=== PATIENT | male | born 1995 | race Caucasian/White ===

== ENCOUNTER 2017-01-09 00:26 | Emergency (ER) | payer MEDICAID ==
[~2017-01-09] VITALS: Ht 175.3 cm; Wt 81.6 kg
[2017-01-09 00:35] VITALS: BP_SYST 155
[2017-01-09] MEDS ORDERED: DIPH-TET-PERTUS Vaccine 0.5 ML VIAL (ADACEL) IM ONE (01:15)
[2017-01-09] MEDS ORDERED: BACITRACIN 1 GM OINT TP ONE (01:15)
[2017-01-09 01:25] VITALS: BP_SYST 150
== END 2017-01-09 01:25 | disposition home or self-care (01) ==
LOC: SED 00:26
DX: S01.01XA Laceration without foreign body of scalp, initial encounter (principal); R03.0 Elevated blood-pressure reading, without diagnosis of hypertension; V00.131A Fall from skateboard, initial encounter; Y93.51 Activity, roller skating (inline) and skateboarding; Y92.89 Other specified places as the place of occurrence of the external cause; Y99.8 Other external cause status
CPT/HCPCS: 90715; 99283

== ENCOUNTER 2017-01-15 11:56 | Emergency (ER) | payer MEDICAID ==
[~2017-01-15] VITALS: Ht 177.8 cm; Wt 81.6 kg
[2017-01-15 12:03] VITALS: BP_SYST 138
[2017-01-15 12:22] VITALS: BP_SYST 128
== END 2017-01-15 12:22 | disposition home or self-care (01) ==
LOC: SED 11:56
DX: S01.01XD Laceration without foreign body of scalp, subsequent encounter (principal); X58.XXXD Exposure to other specified factors, subsequent encounter
CPT/HCPCS: 99281

== ENCOUNTER 2017-03-07 00:56 | Emergency (ER) | payer MEDICAID ==
[~2017-03-07] VITALS: Ht 175.3 cm; Wt 72.6 kg
[2017-03-07 01:00] VITALS: BP_SYST 158
[2017-03-07 01:44] LABS: BILIRUBIN,URINE NEGATIVE (NEGATIVE); BLOOD, URINE NEGATIVE (NEGATIVE); CLARITY/URINE CLEAR (CLEAR); COLOR,URINE YELLOW (YELLOW); GLUCOSE,URINE TRACE (NEGATIVE); KETONES,URINE NEGATIVE (NEGATIVE); LEUKOCYTE ESTERASE ,URINE NEGATIVE (NEGATIVE); NITRITE, URINE NEGATIVE (NEGATIVE); PROTEIN URINE NEGATIVE (NEGATIVE); UROBILINOGEN,URINE 0.2 (0.2-1.0)
[2017-03-07 01:54] LABS: BARBITURATE, URINE NEGATIVE (NEG <=200); BENZODIAZEPINE, URINE NEGATIVE (NEG <=150); CANNABINOID, URINE POSITIVE (NEG <=50); COCAINE, URINE NEGATIVE (NEG <=150); METHAMPHETAMINES SCREEN,URINE NEGATIVE (NEG <=500); URINE AMPHETAMINE POSITIVE (NEG <=500); URINE METHADONE NEGATIVE (NEG <=200)
[2017-03-07 01:55] LABS: OPIATE, URINE NEGATIVE (NEG <=100); PHENCYCLIDINE SCREEN,URINE NEGATIVE (NEG <=25); UR TRICYCLIC ANTIDEPRESSANTS NEGATIVE (NEG <=300); URINE OXYCODONE SCREEN NEGATIVE (NEG <=100); URINE PROPOXYPHENE SCREEN NEGATIVE (NEG <=300)
[2017-03-07 02:04] LABS: BASOPHILS # (AUTO) 0.1 K/uL (0.0-0.2); EOSINOPHILS # (AUTO) 0.2 K/uL (0.0-0.4); EOSINOPHILS % (AUTO) 2.3 % (0.0-4.0); HEMATOCRIT 51.4 % (36-54); LYMPHOCYTES # (AUTO) 2.4 K/uL (1.0-5.5); LYMPHOCYTES % (AUTO) 31.2 % (20.5-51.5); MEAN CORPUSCULAR HEMOGLOBIN 30 pg (27-31); MEAN CORPUSCULAR HGB CONC 33 % (32-36); MEAN CORPUSCULAR VOLUME 89 fL (79.0-98.0); MONOCYTES # (AUTO) 0.6 K/uL (0.0-1.0); MONOCYTES % (AUTO) 7.5 % (1.7-9.3); NEUTROPHILS # (AUTO) 4.5 K/uL (1.8-7.7); PLATELET COUNT (AUTO) 318 K/uL (130-430); RED BLOOD CELL COUNT(AUTO) 5.76 MIL/uL (4.2-6.2); RED CELL DISTRIBUTION WIDTH 11.6 % (9.0-15.0); WHITE BLOOD COUNT (AUTO) 7.8 K/uL (4.5-11.0)
[2017-03-07 02:16] LABS: ALBUMIN 4.1 g/dL (3.4-4.8); CREATININE 0.82 mg/dL (0.55-1.30); POTASSIUM 3.6 mmol/L (3.5-5.1); TOTAL BILIRUBIN 0.2 mg/dL (0.0-1.0)
[2017-03-07] MEDS ORDERED: KETOROLAC TROMETHAMINE 60 MG/2 ML VIAL IM ONE (04:15)
[2017-03-07 05:10] VITALS: BP_SYST 120
== END 2017-03-07 05:10 | disposition home or self-care (01) ==
LOC: SED 00:56
DX: J18.0 Bronchopneumonia, unspecified organism (principal); F90.9 Attention-deficit hyperactivity disorder, unspecified type; Z98.890 Other specified postprocedural states
CPT/HCPCS: 36415; 74176; 80053; 80307; 81003; 83690; 85025; 93005; 96372; 99285; G0482; J1885

== ENCOUNTER 2017-05-30 01:55 | Emergency (ER) | payer MEDICAID ==
[~2017-05-30] VITALS: Ht 177.8 cm; Wt 81.6 kg
[2017-05-30 02:06] VITALS: BP_SYST 119
[2017-05-30] MEDS: HYDROcodone/ACETAMIN 10-325 MG TAB PO ONE (03:23)
[2017-05-30 05:12] VITALS: BP_SYST 111
== END 2017-05-30 05:10 | disposition home or self-care (01) ==
LOC: SED 01:55
DX: S00.81XA Abrasion of other part of head, initial encounter (principal); F90.9 Attention-deficit hyperactivity disorder, unspecified type; Y04.0XXA Assault by unarmed brawl or fight, initial encounter; Y93.89 Activity, other specified; Y92.89 Other specified places as the place of occurrence of the external cause; Y99.8 Other external cause status
CPT/HCPCS: 70450-TC; 70486-TC; 99284

== ENCOUNTER 2018-11-23 23:22 | Emergency (ER) | payer MEDICAID ==
[~2018-11-23] VITALS: Ht 177.8 cm; Wt 95.3 kg
[2018-11-23 23:43] VITALS: BP_SYST 145
--- NOTE | 2018-11-24 01:39 | NUR ---
Pt ambulatory to bed 7 for evaluation
--- NOTE | 2018-11-24 01:45 | NUR ---
Patient brought in with mother complaining of shortness of breath and productive cough x 1 week progressively worsening . Patient reports having yellow phlegm. Pain 5/10. Denies any fever, nausea, vomiting or diarrhea. No other complaints/injuries per patient or as noted. Will continue to monitor.
--- NOTE | 2018-11-24 02:22 | NUR ---
ER at bedside examining patient.
[2018-11-24] MEDS ORDERED: ONDANSETRON 4 MG ODT TAB PO ONE (02:30)
[2018-11-24] MEDS ORDERED: IPRATROPIUM/ALBUTEROL SULFATE 3 ML AMPUL.NEB (DUONEB) INH ONE (02:30)
[2018-11-24 03:01] VITALS: BP_SYST 136
--- NOTE | 2018-11-24 03:01 | NUR ---
Patient given written and verbal discharge instructions and verbalizes understanding. ER MD discussed with patient the results and treatment provided. Patient in stable condition. ID arm band removed. Rx of albuterol, zythromax and zofran given. Patient educated on pain management and to follow up with PMD in 2-3days. Pain 0/10. Opportunity for questions provided and answered. Medication side effect fact sheet provided.
== END 2018-11-24 03:01 | disposition home or self-care (01) ==
LOC: SED 23:22
DX: J20.9 Acute bronchitis, unspecified (principal)
CPT/HCPCS: 71045; 94640; 99283; J7620; Q0162

== ENCOUNTER 2020-01-21 02:20 | Emergency (ER) | payer MEDICAID ==
[~2020-01-21] VITALS: Ht 177.8 cm; Wt 99.8 kg
[2020-01-21 02:30] VITALS: BP_SYST 175
[2020-01-21] MEDS ORDERED: KETOROLAC TROMETHAMINE 60 MG/2 ML VIAL IM ONE (03:15)
[2020-01-21] MEDS ORDERED: IBUPROFEN 800 MG TABLET PO ONE (03:30)
[2020-01-21 03:34] VITALS: BP_SYST 145
== END 2020-01-21 03:34 | disposition home or self-care (01) ==
LOC: SED 02:20
DX: S63.693A Other sprain of left middle finger, initial encounter (principal); S63.695A Other sprain of left ring finger, initial encounter; W01.0XXA Fall on same level from slipping, tripping and stumbling without subsequent striking against object, initial encounter; Y93.89 Activity, other specified; Y92.89 Other specified places as the place of occurrence of the external cause; Y99.8 Other external cause status
CPT/HCPCS: 99283; J1885

== ENCOUNTER 2021-02-18 21:32 | Emergency (ER) | payer MEDICAID ==
[~2021-02-18] VITALS: Ht 182.9 cm; Wt 86.2 kg
--- NOTE | 2021-02-18 21:34 | NUR ---
Placed in room H1 . Placed on surveillance system monitor, blood pressure machine and pulse oximeter. To gown for exam. Side rails up.
[2021-02-18 21:37] VITALS: BP_SYST 131
--- NOTE | 2021-02-18 22:22 | NUR ---
Pt BIB family to ED C/O chest pain since today, pt was drinking alcohol yesterday. VSS no s/s of acute distress noted Resting on gurney rails up
--- NOTE | 2021-02-18 22:26 | NUR ---
PORTABLE XRAY AT BEDSIDE.
[2021-02-18] MEDS ORDERED: ASPIRIN 81 MG TAB.CHEW PO ONE (22:30)
[2021-02-18] MEDS ORDERED: MORPHINE 4 MG INJ. 4 MG/ML VIAL IVP ONE (22:30)
[2021-02-18] MEDS ORDERED: ONDANSETRON HCL 4 MG/2 ML VIAL IVP ONE (22:30)
--- NOTE | 2021-02-18 22:30 | NUR ---
Dr. Carr [facility] for pt eval
--- NOTE | 2021-02-18 22:34 | NUR ---
# 20 gauge angiocath placed to RIGHT AC. Use of asceptic technique. Opsite placed over site. Blood return noted. Blood for lab drawn from site. Flushed with 10 cc of normal saline. No evidence of infiltration noted. Patient tolerated well.
[2021-02-18 22:47] LABS: BASOPHILS # (AUTO) 0.1 K/uL (0.0-0.2); BASOPHILS % (AUTO) 1.3 % (0.0-2.0); EOSINOPHILS # (AUTO) 0.2 K/uL (0.0-0.4); EOSINOPHILS % (AUTO) 2.6 % (0.0-4.0); HEMATOCRIT 47.7 % (36-54); HEMOGLOBIN 16.5 g/dL (14.0-18.0); LYMPHOCYTES # (AUTO) 2.6 K/uL (1.0-5.5); LYMPHOCYTES % (AUTO) 36.6 % (20.5-51.5); MEAN CORPUSCULAR HEMOGLOBIN 30 pg (27-31); MEAN CORPUSCULAR HGB CONC 35 % (32-36); MEAN CORPUSCULAR VOLUME 88 fL (79.0-98.0); MONOCYTES # (AUTO) 0.6 K/uL (0.0-1.0); MONOCYTES % (AUTO) 8.9 % (1.7-9.3); NEUTROPHILS # (AUTO) 3.6 K/uL (1.8-7.7); NEUTROPHILS % (AUTO) 50.6 % (40.0-70.0); PLATELET COUNT (AUTO) 243 K/uL (130-430); RED BLOOD CELL COUNT(AUTO) 5.45 MIL/uL (4.2-6.2); RED CELL DISTRIBUTION WIDTH 12.8 % (9.0-15.0); WHITE BLOOD COUNT (AUTO) 7.2 K/uL (4.8-10.8)
[2021-02-18 23:11] LABS: CALCIUM 9.2 mg/dL (8.4-11.0); CREATININE 0.94 mg/dL (0.55-1.30); POTASSIUM 3.8 mmol/L (3.5-5.1)
[2021-02-18 23:17] LABS: ALBUMIN 3.9 g/dL (3.4-4.8); TOTAL BILIRUBIN 0.4 mg/dL (0.0-1.0)
[2021-02-18] MEDS ORDERED: PANTOPRAZOLE SODIUM 40 MG/VIAL (PROTONIX) IVP ONE (23:30)
--- NOTE | 2021-02-18 23:33 | NUR ---
VSS no s/s of acute distress Resting on gurney rails up
[2021-02-18] MEDS ORDERED: PANTOPRAZOLE SODIUM 40 MG/VIAL (PROTONIX) ONE (23:52)
--- NOTE | 2021-02-19 00:45 | NUR ---
IVF therapy well tolerated
--- NOTE | 2021-02-19 00:55 | NUR ---
Dr. Carr [facility] for pt update
[2021-02-19] MEDS ORDERED: PANT20TA2 PO (01:24)
[2021-02-19 01:45] VITALS: BP_SYST 142
--- NOTE | 2021-02-19 01:45 | NUR ---
Patient given written and verbal discharge instructions and verbalizes understanding. ER MD discussed with patient the results and treatment provided. Patient in stable condition. ID arm band removed. IV catheter removed intact and dressing applied, no active bleeding. Rx of Protonix given. Patient educated on pain management and to follow up with PMD. Pain Scale 0/10 Opportunity for questions provided and answered. Medication side effect fact sheet provided.
== END 2021-02-19 01:45 | disposition home or self-care (01) ==
LOC: SED 21:32
DX: R07.89 Other chest pain (principal)
CPT/HCPCS: 36415; 71045; 80053; 84484; 85025; 93005; 96374; 96375; 99285; C9113; J2270; J2405

== ENCOUNTER 2021-04-24 10:46 | Emergency (ER) | payer MEDICAID, SELFPAY ==
[~2021-04-24] VITALS: Ht 177.8 cm; Wt 68.0 kg
[~2021-04-24 10:46] MED LIST: PANT20TA2 PO
[2021-04-24 11:08] VITALS: BP_SYST 139
[2021-04-24] MEDS ORDERED: LORazepam 1 MG TABLET PO ONE ×2 (11:30)
[2021-04-24 12:02] LABS: CALCIUM 8.7 mg/dL (8.4-11.0); CREATININE 0.86 mg/dL (0.55-1.30); POTASSIUM 3.4 mmol/L (3.5-5.1)
[2021-04-24 12:10] LABS: BASOPHILS # (AUTO) 0.1 K/uL (0.0-0.2); BASOPHILS % (AUTO) 0.7 % (0.0-2.0); EOSINOPHILS # (AUTO) 0.2 K/uL (0.0-0.4); EOSINOPHILS % (AUTO) 1.8 % (0.0-4.0); HEMATOCRIT 48.3 % (36-54); HEMOGLOBIN 16.5 g/dL (14.0-18.0); LYMPHOCYTES # (AUTO) 3.6 K/uL (1.0-5.5); LYMPHOCYTES % (AUTO) 37.5 % (20.5-51.5); MEAN CORPUSCULAR HEMOGLOBIN 30 pg (27-31); MEAN CORPUSCULAR HGB CONC 34 % (32-36); MEAN CORPUSCULAR VOLUME 88 fL (79.0-98.0); MONOCYTES # (AUTO) 0.8 K/uL (0.0-1.0); MONOCYTES % (AUTO) 8.7 % (1.7-9.3); NEUTROPHILS % (AUTO) 51.3 % (40.0-70.0); PLATELET COUNT (AUTO) 271 K/uL (130-430); RED BLOOD CELL COUNT(AUTO) 5.47 MIL/uL (4.2-6.2); WHITE BLOOD COUNT (AUTO) 9.7 K/uL (4.8-10.8)
[2021-04-24 12:11] LABS: ALBUMIN 3.9 g/dL (3.4-4.8); TOTAL BILIRUBIN 0.3 mg/dL (0.0-1.0)
[2021-04-24] MEDS ORDERED: OMEP20CA15 PO (12:52)
[2021-04-24] MEDS ORDERED: LORA-259 PO (12:52)
[2021-04-24 13:41] VITALS: BP_SYST 132
== END 2021-04-24 13:41 | disposition home or self-care (01) ==
LOC: SED 10:46
DX: K20.90 Esophagitis, unspecified without bleeding (principal); Z79.891 Long term (current) use of opiate analgesic
CPT/HCPCS: 36415; 71045; 80053; 82150; 83690; 84484; 85025; 85379; 93005; 99284; 99285

== ENCOUNTER 2021-08-13 14:32 | Emergency (ER) | payer MEDICAID ==
[~2021-08-13] VITALS: Ht 177.8 cm; Wt 102.1 kg
[~2021-08-13 14:32] MED LIST changes: +LORA-259 PO; +OMEP20CA15 PO
[2021-08-13 14:42] VITALS: BP_SYST 139
[2021-08-13 15:40] LABS: BASOPHILS # (AUTO) 0.1 K/uL (0.0-0.2); BASOPHILS % (AUTO) 0.6 % (0.0-2.0); EOSINOPHILS # (AUTO) 0.1 K/uL (0.0-0.4); EOSINOPHILS % (AUTO) 1.3 % (0.0-4.0); HEMATOCRIT 50.3 % (36-54); HEMOGLOBIN 17.5 g/dL (14.0-18.0); LYMPHOCYTES # (AUTO) 1.8 K/uL (1.0-5.5); MEAN CORPUSCULAR HEMOGLOBIN 31 pg (27-31); MEAN CORPUSCULAR HGB CONC 35 % (32-36); MEAN CORPUSCULAR VOLUME 88 fL (79.0-98.0); MONOCYTES # (AUTO) 0.7 K/uL (0.0-1.0); MONOCYTES % (AUTO) 6.7 % (1.7-9.3); NEUTROPHILS # (AUTO) 7.5 K/uL (1.8-7.7); NEUTROPHILS % (AUTO) 73.4 % (40.0-70.0); PLATELET COUNT (AUTO) 289 K/uL (130-430); RED BLOOD CELL COUNT(AUTO) 5.71 MIL/uL (4.2-6.2); RED CELL DISTRIBUTION WIDTH 13.2 % (9.0-15.0); WHITE BLOOD COUNT (AUTO) 10.2 K/uL (4.8-10.8)
[2021-08-13 15:58] LABS: CALCIUM 8.8 mg/dL (8.4-11.0); CREATININE 0.92 mg/dL (0.55-1.30); INR 1.1 (0.80-1.20); POTASSIUM 3.7 mmol/L (3.5-5.1); PROTHROMBIN TIME 10.9 SECS (9.5-12.5)
[2021-08-13 16:04] LABS: ALBUMIN 3.8 g/dL (3.4-4.8); TOTAL BILIRUBIN 0.3 mg/dL (0.0-1.0)
[2021-08-13] MEDS ORDERED: ONDANSETRON HCL 4 MG/2 ML VIAL IVP ONE (16:15)
[2021-08-13] MEDS ORDERED: PANTOPRAZOLE SODIUM 80 MG in NS 100 ML IV ONE (16:15)
[2021-08-13] MEDS ORDERED: PANTOPRAZOLE SODIUM 40 MG/VIAL (PROTONIX) ONE (16:17)
[2021-08-13] MEDS ORDERED: LIB25 PO (18:33)
[2021-08-13] MEDS ORDERED: ONDA-8 TL (18:33)
[2021-08-13] MEDS ORDERED: OMEP40CA20 PO (18:33)
[2021-08-13 18:55] VITALS: BP_SYST 142
== END 2021-08-13 18:55 | disposition home or self-care (01) ==
LOC: SED 14:32
DX: K29.20 Alcoholic gastritis without bleeding (principal); Z79.899 Other long term (current) drug therapy
CPT/HCPCS: 36415; 71045; 80053; 83690; 85025; 85610; 85730; 96365; 96375; 99284; C9113; G0482; J2405

== ENCOUNTER 2021-09-06 20:06 | Inpatient (IN) | payer MEDICAID ==
[~2021-09-06] VITALS: Ht 177.8 cm; Wt 102.1 kg
[2021-09-06 20:06] VITALS: BP_SYST 155
[~2021-09-06 20:06] MED LIST changes: +LIB25 PO; +OMEP40CA20 PO; +ONDA-8 TL
--- NOTE | 2021-09-06 20:06 | NUR ---
Note siria in ED - 09/07/21 at 0052 by [email or web address] Placed in room 04 . Placed on quality assurance monitor body, blood pressure machine and pulse oximeter. To gown for exam. Side rails up. Report given to RENEE DOMINGUEZ
[2021-09-06] MEDS ORDERED: NACL 0.9% 1,000 ML IV ONE (21:00)
[2021-09-06] MEDS ORDERED: FOLIC ACID 1 MG, THIAMINE HCL 100 MG, MAGNESIUM SULFATE 1 GM, MVI 10 ML in NACL 0.9% 1,... IV ONE (21:00)
--- NOTE | 2021-09-06 21:06 | NUR ---
Placed in room 04 . Placed on school lunch monitor, blood pressure machine and pulse oximeter. To gown for exam. Side rails up. Report given to RENEE DOMINGUEZ
--- NOTE | 2021-09-06 21:10 | NUR ---
FIRST CONTACT WITH PT. IV ESTABLISHED, WILL FOLLOW THROUGH WITH ORDERS. UPDATED PT AND MOTHER ON POC WITH FULL RETURNED VERBAL UNDERSTANDING.
[2021-09-06] MEDS ORDERED: FAMOTIDINE PF 20 MG/2 ML VIAL IVP ONE (21:15)
[2021-09-06] MEDS ORDERED: ONDANSETRON HCL 4 MG/2 ML VIAL IVP ONE (21:15)
[2021-09-06] MEDS ORDERED: LORazepam 2 MG/ML VIAL IVP ONE ×2 (21:15)
[2021-09-06] MEDS ORDERED: cloNIDine HCL 0.1 MG TABLET PO ONE (21:15)
[2021-09-06] MEDS ORDERED: MAGNESIUM SULFATE 1 GM/2 ML VIAL ONE (21:21)
[2021-09-06] MEDS ORDERED: FOLIC ACID 5 MG/ML VIAL IV ONE (21:21)
[2021-09-06] MEDS ORDERED: MVI 10 ML VIAL IV ONE (21:21)
[2021-09-06] MEDS ORDERED: THIAMINE HCL 100 MG/ML VIAL ONE (21:21)
--- NOTE | 2021-09-06 21:46 | NUR ---
PT TO CT VIA GURJENNIFER. NO S/S OF DISTRESS NOTED.
[2021-09-06 21:54] LABS: BASOPHILS # (AUTO) 0.1 K/uL (0.0-0.2); BASOPHILS % (AUTO) 0.9 % (0.0-2.0); EOSINOPHILS # (AUTO) 0.1 K/uL (0.0-0.4); EOSINOPHILS % (AUTO) 1.2 % (0.0-4.0); HEMATOCRIT 47.4 % (36-54); HEMOGLOBIN 16.4 g/dL (14.0-18.0); LYMPHOCYTES # (AUTO) 2.1 K/uL (1.0-5.5); LYMPHOCYTES % (AUTO) 23.4 % (20.5-51.5); MEAN CORPUSCULAR HEMOGLOBIN 31 pg (27-31); MEAN CORPUSCULAR HGB CONC 35 % (32-36); MEAN CORPUSCULAR VOLUME 89 fL (79.0-98.0); MONOCYTES # (AUTO) 0.7 K/uL (0.0-1.0); MONOCYTES % (AUTO) 7.6 % (1.7-9.3); NEUTROPHILS # (AUTO) 6.1 K/uL (1.8-7.7); NEUTROPHILS % (AUTO) 66.9 % (40.0-70.0); PLATELET COUNT (AUTO) 257 K/uL (130-430); RED BLOOD CELL COUNT(AUTO) 5.32 MIL/uL (4.2-6.2); RED CELL DISTRIBUTION WIDTH 13.5 % (9.0-15.0); WHITE BLOOD COUNT (AUTO) 9.1 K/uL (4.8-10.8)
[2021-09-06 21:58] LABS: ANION GAP 12 (5-15); CALCIUM 8.3 mg/dL (8.4-11.0); CHLORIDE 103 mmol/L (98-107); CREATININE 1.09 mg/dL (0.55-1.30); GLUCOSE 92 mg/dL (70-99); POTASSIUM 3.6 mmol/L (3.5-5.1); SODIUM SERUM 137 mmol/L (136-145); UREA NITROGEN, BLOOD 12 mg/dL (8-21)
[2021-09-06 22:00] LABS: GFR AFRICAN AMERICAN 108 mL/min (>90)
[2021-09-06 22:12] LABS: ALANINE AMINOTRANSFERASE 57 U/L (12-78); ALBUMIN 3.6 g/dL (3.4-4.8); ASPARTATE AMINOTRANSFERASE 37 U/L (10-37); TOTAL BILIRUBIN 0.4 mg/dL (0.0-1.0)
[2021-09-06 22:18] LABS: ACETAMINOPHEN < 1 ug/mL (1-30); ALCOHOL, BLOOD < 3 mg/dL (<10)
[2021-09-06] MEDS ORDERED: ALBUTEROL SULFATE 0.083% 2.5 MG/3 ML VIAL.NEB INH PRN (22:30)
[2021-09-06] MEDS ORDERED: LORazepam 2 MG/ML VIAL IVP PRN ×2 (22:30)
[2021-09-06] MEDS ORDERED: levETIRAcetam 500 MG IV PREMIX 100 ML IV ONE (22:30)
[2021-09-06] MEDS ORDERED: HYDROcodone/ACETAMIN 5-325 MG TAB (NORCO/ VICODIN) PO PRN (22:30)
[2021-09-06] MEDS ORDERED: ACETAMINOPHEN 325 MG TABLET PO PRN (22:30)
[2021-09-06] MEDS ORDERED: ONDANSETRON HCL 4 MG/2 ML VIAL IVP PRN (22:30)
--- NOTE | 2021-09-06 22:30 | NUR ---
PT RESTING, NO S/S OF DISTRESS NOTED. PT IS ADMITTED, NO BEDS IN HOSPITAL. PT DENIES ANY PAIN. NO S/S OF DISTRESS NOTED. WILL CONTINUE TO MONITOR PAIN/COMFORT.
--- NOTE | 2021-09-06 22:50 | NUR ---
Admit bed requested Patient will be admitted to care of . Admitted to TELEMETRY unit. Diagnosis [ALCOHOL WITHDRAWL] Inpatient (Yes or No) [Y] Observation (Yes or No) [N] Orientation concerns or request close to nursing station (Yes or No) [N] Covid Status [NEG] On vent or bipap [N] Isolation requirements [N] Needs a sitter [N] From Home (Yes or if No enter name of facility) [Y] Requires Dialysis (Yes or No) [N] Med Rec Completed (Yes of No) [N]
[2021-09-06] MEDS: NEPHROVITE, (FOLIC ACID/VITAMIN B COMP W-C 1 TAB) PO SCH (23:10)
[2021-09-06] MEDS: NACL 0.9% 1,000 ML IV SCH (23:10)
[2021-09-06 23:29] LABS: BILIRUBIN,URINE NEGATIVE (NEGATIVE); BLOOD, URINE NEGATIVE (NEGATIVE); CLARITY/URINE CLEAR (CLEAR); COLOR,URINE YELLOW (YELLOW); GLUCOSE,URINE NEGATIVE (NEGATIVE); KETONES,URINE NEGATIVE (NEGATIVE); LEUKOCYTE ESTERASE ,URINE NEGATIVE (NEGATIVE); NITRITE, URINE NEGATIVE (NEGATIVE); PROTEIN URINE NEGATIVE (NEGATIVE); UROBILINOGEN,URINE 0.2 (0.2-1.0)
--- NOTE | 2021-09-06 23:30 | NUR ---
PT RESTING, NO CHANGE IN PT STATUS. VSS. WILL CONTINUE TO MONITOR.
[2021-09-06 23:39] LABS: BARBITURATE, URINE NEGATIVE (NEG <=200); BENZODIAZEPINE, URINE POSITIVE (NEG <=150); CANNABINOID, URINE NEGATIVE (NEG <=50); COCAINE, URINE NEGATIVE (NEG <=150); METHAMPHETAMINES SCREEN,URINE NEGATIVE (NEG <=500); OPIATE, URINE NEGATIVE (NEG <=100); PHENCYCLIDINE SCREEN,URINE NEGATIVE (NEG <=25); UR TRICYCLIC ANTIDEPRESSANTS NEGATIVE (NEG <=300); URINE AMPHETAMINE NEGATIVE (NEG <=500); URINE METHADONE NEGATIVE (NEG <=200); URINE OXYCODONE SCREEN NEGATIVE (NEG <=100); URINE PROPOXYPHENE SCREEN NEGATIVE (NEG <=300)
[2021-09-06 23:44] VITALS: BP_SYST 106
--- NOTE | 2021-09-07 00:25 | NUR ---
DEMETRIO COLLECTED AND SENT TO LAB Addendum: 09/07/21 at 0050 by [email or web address] PT RESTING, VSS. DENIES ANY PAIN OR NEEDS AT THIS TIME.
--- NOTE | 2021-09-07 01:30 | NUR ---
PT RESTING, NO S/S OF DISTRESS NOTED. PT DENIES ANY NEED OR PAIN AT THIS TIME. VSS. WILL CONTINTUE TO MONITOR.
--- NOTE | 2021-09-07 02:30 | NUR ---
PT RESTING, NO S/S OF DISTRESS NOTED. PT DENIES ANY PAIN OR NEEDS AT THIS TIME. WILL CONTINUE TO MONITOR
--- NOTE | 2021-09-07 03:30 | NUR ---
PT RESTING, NO S/S OF DISTRESS NOTED. DENIES ANY PAIN. WILL CONTINUE TO MONITOR.
--- NOTE | 2021-09-07 04:30 | NUR ---
PT RESTING, NO S/S OF DISTRESS NOTED. PT DENIES ANY NEEDS OR PAIN.
[2021-09-07 05:13] LABS: BASOPHILS # (AUTO) 0.1 K/uL (0.0-0.2); EOSINOPHILS # (AUTO) 0.2 K/uL (0.0-0.4); EOSINOPHILS % (AUTO) 2.7 % (0.0-4.0); HEMATOCRIT 44.7 % (36-54); HEMOGLOBIN 15.3 g/dL (14.0-18.0); LYMPHOCYTES # (AUTO) 2.1 K/uL (1.0-5.5); LYMPHOCYTES % (AUTO) 36.2 % (20.5-51.5); MEAN CORPUSCULAR HEMOGLOBIN 31 pg (27-31); MEAN CORPUSCULAR HGB CONC 34 % (32-36); MEAN CORPUSCULAR VOLUME 89 fL (79.0-98.0); MONOCYTES # (AUTO) 0.5 K/uL (0.0-1.0); NEUTROPHILS % (AUTO) 52.1 % (40.0-70.0); PLATELET COUNT (AUTO) 202 K/uL (130-430); RED BLOOD CELL COUNT(AUTO) 5.01 MIL/uL (4.2-6.2); RED CELL DISTRIBUTION WIDTH 13.5 % (9.0-15.0); WHITE BLOOD COUNT (AUTO) 5.7 K/uL (4.8-10.8)
--- NOTE | 2021-09-07 05:30 | NUR ---
NO CHANGE IN PT STATUS. NO PAIN OR NEEDS AT THIS TIME.
[2021-09-07 05:36] LABS: CALCIUM 7.9 mg/dL (8.4-11.0); CREATININE 0.88 mg/dL (0.55-1.30); PHOSPHORUS 3.5 mg/dL (2.7-4.5); POTASSIUM 3.8 mmol/L (3.5-5.1); TOTAL BILIRUBIN 0.8 mg/dL (0.0-1.0)
--- NOTE | 2021-09-07 07:12 | NUR ---
REPORT AND CARE TO RICKI DURAN WITH FULL RETURNED VERBAL UNDERSTANDING.
--- NOTE | 2021-09-07 07:31 | NUR ---
PT WITH EYES CLOSED. IN NAD. RESP EVEN AND UNLBORED, ON RA @97%. DENIES ANY PAIN OR NAUSEA AT THS TIME. SKIN W/D/I. VSS.
--- NOTE | 2021-09-07 08:29 | NUR ---
Patient will be admitted to care of . Admitted to unit. Will go to room . Belongings list completed. Complete and up to date summary report printed. SBAR report to be given at bedside with opportunity for questions.
[2021-09-07] MEDS: NACL 0.9% 1,000 ML IV SCH ×3 (09:17→20:56)
[2021-09-07] MEDS: NEPHROVITE, (FOLIC ACID/VITAMIN B COMP W-C 1 TAB) PO SCH (09:17)
--- NOTE | 2021-09-07 10:50 | NUR ---
CONSULTATION PAGED/CALLED Reason for Consultation: [] Seizure Person Who was Notified: []Hilario Consulting Physician: [] Dr. Mathias Leave Manager Specialty: []Neuro Ordering Physician: [] Dr. Butts
[2021-09-07 10:53] VITALS: BP_SYST 156
--- NOTE | 2021-09-07 12:31 | NUR ---
Photographic Printer STATE FARM AGENT TEAM MEMBER received a referral for Alcoholism, met with pt. bedside. Pt. was alert and orientated and easily participated in this interview. PT. stated he has a drinking problem and is more fearful for his health since his seizure may be related to his drinking. Pt. stated he resides with his parents and his parents are not happy with him. Pt. feels more motivated to get help. STATE FARM AGENT TEAM MEMBER asked pt. if he was suicidal. Pt. denied this and stated he just drinks 2-12 packs of beer a day. STATE FARM AGENT TEAM MEMBER gave pt. numerous resources including alcohol and sustance abuse, a hotline, Mental Health and an Alcohol resource packet. Pt. was very grateful and appreciated all the resources. STATE FARM AGENT TEAM MEMBER will remain available as needed.
--- NOTE | 2021-09-07 13:01 | NUR ---
PATIENT WENT FOR MRI AND ATIVAN WAS PROVIDED PRIOR BUT PATIENT EXPERIENCE CLAUSTROPHOBIA AND WAS UNABLE TO COMPLETE THE MRI.
[2021-09-07 20:00] VITALS: BP_SYST 112
[2021-09-08] MEDS: NACL 0.9% 1,000 ML IV SCH ×2 (05:54→12:37)
[2021-09-08 08:00] VITALS: BP_SYST 126
[2021-09-08] MEDS: NEPHROVITE, (FOLIC ACID/VITAMIN B COMP W-C 1 TAB) PO SCH (08:43)
--- NOTE | 2021-09-08 10:21 | NUR ---
Radiator Specialist LABOR RELATIONS ANALYST met wit pt. and will add pts. cell phone to the face sheet, Cell is [phone]. LABOR RELATIONS ANALYST gave pt. an advanced directive and explained the importance of it. LABOR RELATIONS ANALYST asked if pt. has any questions and pt did not. LABOR RELATIONS ANALYST will remain available as needed.
[2021-09-08 12:00] VITALS: BP_SYST 132
== END 2021-09-08 15:35 | disposition home or self-care (01) | DRG 53 ==
LOC: SED 20:06 → STU 22:21
PROVIDERS: ADMIT Internal Medicine Hospice and Palliative Medicine; ATTEND Internal Medicine Hospice and Palliative Medicine
PROC: 4A10X4Z Monitoring of Central Nervous Electrical Activity, External Approach (ICD-10-PCS; principal; 2021-09-08)
DX: G40.89 Other seizures (principal); F10.239 Alcohol dependence with withdrawal, unspecified; F17.200 Nicotine dependence, unspecified, uncomplicated; Y90.9 Presence of alcohol in blood, level not specified; Z20.822 Contact with and (suspected) exposure to COVID-19; F41.9 Anxiety disorder, unspecified
CPT/HCPCS: 36415; 70450-TC; 70551; 76376; 80053; 80307; 81003; 83605; 83735; 84100; 84484; 85025; 87040; 87086; 93005; 95816; 96365; 96367; 96375; 99285; G0378; G0480; G0481; G0482; J1953; J2060; J2405; J3411; J3475; J3490

== ENCOUNTER 2022-01-21 21:44 | Emergency (ER) | payer MEDICAID ==
[~2022-01-21] VITALS: Ht 177.8 cm; Wt 102.1 kg
[2022-01-21 22:26] VITALS: BP_SYST 104
--- NOTE | 2022-01-21 22:26 | NUR ---
Patient triaged and placed in waiting room. VSS and patient appears in no acute distress at this time. Accompanied by Mother, awaiting available bed, and MD notified of need for MSE.
--- NOTE | 2022-01-21 23:23 | NUR ---
Patient to ER bed 5 to gown for evaluation. Side rails up. Report given to Wnada DURAN(reg).
[2022-01-21] MEDS ORDERED: KETOROLAC TROMETHAMINE 30 MG VIAL IVP ONE (23:45)
[2022-01-21] MEDS ORDERED: NACL 0.9% 1,000 ML IV ONE (23:45)
--- NOTE | 2022-01-21 23:53 | NUR ---
PT BIB MOTHER W C/O OF ETOH INTOXICATION AND TAKING 600MG OF EDIBLES. C/O OF GENERALIZED CHEST PAIN NON RAD. DENIES SOB. HAS HAS SZ IN PAST FROM ETOH WITHDRAWL. MOTHER AT BEDSIDE. PMH: ETOH ABUSE, ADHD
[2022-01-22 00:43] LABS: MEAN CORPUSCULAR VOLUME 87 fL (79.0-98.0)
[2022-01-22 00:46] LABS: CALCIUM 8.9 mg/dL (8.4-11.0); CREATININE 0.95 mg/dL (0.55-1.30)
[2022-01-22 00:50] LABS: ALBUMIN 3.9 g/dL (3.4-4.8); TOTAL BILIRUBIN 0.2 mg/dL (0.0-1.0)
[2022-01-22 00:56] LABS: BASOPHILS % (AUTO) 0.3 % (0.0-2.0); EOSINOPHILS % (AUTO) 0.1 % (0.0-4.0); HEMATOCRIT 44.8 % (36-54); HEMOGLOBIN 15.4 g/dL (14.0-18.0); LYMPHOCYTES # (AUTO) 1.3 K/uL (1.0-5.5); LYMPHOCYTES % (AUTO) 10.5 % (20.5-51.5); MEAN CORPUSCULAR HEMOGLOBIN 30 pg (27-31); MEAN CORPUSCULAR HGB CONC 35 % (32-36); MONOCYTES # (AUTO) 0.5 K/uL (0.0-1.0); MONOCYTES % (AUTO) 3.6 % (1.7-9.3); NEUTROPHILS # (AUTO) 10.6 K/uL (1.8-7.7); NEUTROPHILS % (AUTO) 85.5 % (40.0-70.0); PLATELET COUNT (AUTO) 222 K/uL (130-430); RED BLOOD CELL COUNT(AUTO) 5.18 MIL/uL (4.2-6.2); RED CELL DISTRIBUTION WIDTH 12.7 % (9.0-15.0)
[2022-01-22 01:01] LABS: WHITE BLOOD COUNT (AUTO) 12.4 K/uL (4.8-10.8)
--- NOTE | 2022-01-22 01:10 | NUR ---
Patient resting quietly. No acute distress noted. Vital signs within normal range.
[2022-01-22 01:14] LABS: BILIRUBIN,URINE NEGATIVE (NEGATIVE); BLOOD, URINE NEGATIVE (NEGATIVE); CLARITY/URINE CLEAR (CLEAR); COLOR,URINE YELLOW (YELLOW); GLUCOSE,URINE NEGATIVE (NEGATIVE); KETONES,URINE NEGATIVE (NEGATIVE); LEUKOCYTE ESTERASE ,URINE NEGATIVE (NEGATIVE); NITRITE, URINE NEGATIVE (NEGATIVE); PH,URINE 5.5 (5.0-8.0); PROTEIN URINE NEGATIVE (NEGATIVE); UROBILINOGEN,URINE 0.2 (0.2-1.0)
[2022-01-22 01:19] LABS: BARBITURATE, URINE NEGATIVE (NEG <=200); BENZODIAZEPINE, URINE NEGATIVE (NEG <=150); CANNABINOID, URINE POSITIVE (NEG <=50); COCAINE, URINE NEGATIVE (NEG <=150); METHAMPHETAMINES SCREEN,URINE NEGATIVE (NEG <=500); OPIATE, URINE NEGATIVE (NEG <=100); PHENCYCLIDINE SCREEN,URINE NEGATIVE (NEG <=25); URINE AMPHETAMINE NEGATIVE (NEG <=500); URINE METHADONE NEGATIVE (NEG <=200); URINE OXYCODONE SCREEN NEGATIVE (NEG <=100); URINE PROPOXYPHENE SCREEN NEGATIVE (NEG <=300)
[2022-01-22 01:20] LABS: UR TRICYCLIC ANTIDEPRESSANTS NEGATIVE (NEG <=300)
[2022-01-22] MEDS ORDERED: DIPHENHYDRAMINE INJ 50 MG/ML VIAL IVP ONE (01:45)
[2022-01-22 02:41] VITALS: BP_SYST 129
--- NOTE | 2022-01-22 02:41 | NUR ---
Patient given written and verbal discharge instructions and verbalizes understanding. ER MD discussed with patient the results and treatment provided. Patient in stable condition. ID arm band removed. IV catheter removed intact and dressing applied, no active bleeding. Patient educated on pain management and to follow up with PMD. Pain Scale 0/10. Opportunity for questions provided and answered.
== END 2022-01-22 02:41 | disposition home or self-care (01) ==
LOC: SED 21:44
DX: F10.129 Alcohol abuse with intoxication, unspecified (principal); F17.200 Nicotine dependence, unspecified, uncomplicated; Z79.899 Other long term (current) drug therapy; Y90.6 Blood alcohol level of 120-199 mg/100 ml
CPT/HCPCS: 99285; 71045; 80307; 80053; 85025; 36415; 81003; 96374; 96375; 93005; G0482; J1200; J1885

== ENCOUNTER 2022-02-15 08:20 | Emergency (ER) | payer MEDICAID ==
[~2022-02-15] VITALS: Ht 177.8 cm; Wt 102.1 kg
[2022-02-15] MEDS ORDERED: LORazepam 2 MG/ML VIAL IM ONE (08:30)
[2022-02-15 08:32] VITALS: BP_SYST 124
--- NOTE | 2022-02-15 08:36 | NUR ---
Patient to ER bed Hallway 1 to gown for evaluation. Side rails up.
--- NOTE | 2022-02-15 08:37 | NUR ---
ER Dr. Morales at bedside examining patient.
--- NOTE | 2022-02-15 08:44 | NUR ---
Patient came from home c/o seizure activity. Pt states he has hx of seizures. After observation and discussion with the patient and physician it was determined the patient was likely in alcohol withdrawal. Pt states he believes his previous seizures were r/t alcohol withdrawal. Pt denies other medical and surgical hx. Pt is A&Ox4, coughing and shaking. Tachy but VS otherwise stable. Care to be provided as ordered. Addendum: 02/15/22 at 0930 by [email or web address] Patient states last drink was 02/14/22 in the evening.
[2022-02-15] MEDS ORDERED: IBUPROFEN 600 MG TABLET PO ONE (09:15)
[2022-02-15] MEDS ORDERED: LORazepam 1 MG TABLET PO ONE (09:15)
[2022-02-15] MEDS ORDERED: LORA-259 PO (09:36)
[2022-02-15] MEDS ORDERED: D-ME118S48 PO (09:41)
[2022-02-15 10:03] VITALS: BP_SYST 122
--- NOTE | 2022-02-15 10:05 | NUR ---
Patient given written and verbal discharge instructions and verbalizes understanding. ER DR. ANTOLIN GIBBS discussed with patient the results and treatment provided. Patient in stable condition. ID arm band removed. IV catheter removed intact and dressing applied, no active bleeding. Rx of ATIVAN, BROMFED COUGH SYRUP given. Patient educated on pain management and to follow up with PMD. Pain Scale 4/10. Opportunity for questions provided and answered. Medication side effect fact sheet provided.
== END 2022-02-15 10:03 | disposition home or self-care (01) ==
LOC: SED 08:20
DX: F10.239 Alcohol dependence with withdrawal, unspecified (principal); R05.9 Cough, unspecified; R09.81 Nasal congestion; Z79.899 Other long term (current) drug therapy; Y90.6 Blood alcohol level of 120-199 mg/100 ml
CPT/HCPCS: 99283; 96372; J2060

== ENCOUNTER 2022-06-25 11:54 | Emergency (ER) | payer MEDICAID ==
[~2022-06-25] VITALS: Ht 177.8 cm; Wt 111.1 kg
[~2022-06-25 11:54] MED LIST changes: +D-ME118S48 PO
[2022-06-25 12:20] VITALS: BP_SYST 144
--- NOTE | 2022-06-25 12:23 | NUR ---
Patient to ER bed 04 to gown for evaluation. Side rails up.
--- NOTE | 2022-06-25 13:20 | NUR ---
Dr Winston evaluating patient at bedside
[2022-06-25] MEDS ORDERED: IBUP-1971 PO (14:34)
[2022-06-25] MEDS ORDERED: OLOP5DRO20 OP (14:34)
[2022-06-25] MEDS ORDERED: PSEU30TA36 PO (14:34)
[2022-06-25 14:51] VITALS: BP_SYST 144
--- NOTE | 2022-06-25 14:52 | NUR ---
Patient given written and verbal discharge instructions and verbalizes understanding. ER MD discussed with patient the results and treatment provided. Patient in stable condition. ID arm band removed. Rx of Rik Friedman Sudafed given. Patient educated on pain management and to follow up with PMD. Pain Scale 2/10. Opportunity for questions provided and answered. Medication side effect fact sheet provided.
== END 2022-06-25 14:51 | disposition home or self-care (01) ==
LOC: SED 11:54
DX: H10.9 Unspecified conjunctivitis (principal); J02.9 Acute pharyngitis, unspecified; R05.9 Cough, unspecified; H57.12 Ocular pain, left eye; Z79.899 Other long term (current) drug therapy; Z20.822 Contact with and (suspected) exposure to COVID-19
CPT/HCPCS: 36415; 86308-TC; 86403; 87081; 99283

== ENCOUNTER 2022-10-25 15:21 | Emergency (ER) | payer MEDICAID ==
[~2022-10-25] VITALS: Ht 177.8 cm; Wt 111.1 kg
[~2022-10-25 15:21] MED LIST changes: +IBUP-1971 PO; +OLOP5DRO20 OP; +PSEU30TA36 PO
[2022-10-25 15:24] VITALS: BP_SYST 148; PULSE 85; RESP 18; TEMP 97.9; O2SAT 98
[2022-10-25] MEDS ORDERED: LISINOPRIL 10 MG TABLET (PRINIVIL) PO ONE (22:45)
[2022-10-25 23:33] LABS: BASOPHILS # (AUTO) 0.1 K/uL (0.0-0.2); BASOPHILS % (AUTO) 1.4 % (0.0-2.0); EOSINOPHILS # (AUTO) 0.2 K/uL (0.0-0.4); EOSINOPHILS % (AUTO) 2.4 % (0.0-4.0); HEMATOCRIT 49.9 % (36-54); LYMPHOCYTES # (AUTO) 3.4 K/uL (1.0-5.5); MEAN CORPUSCULAR HEMOGLOBIN 29 pg (27-31); MEAN CORPUSCULAR HGB CONC 34 % (32-36); MEAN CORPUSCULAR VOLUME 85 fL (79.0-98.0); MONOCYTES # (AUTO) 0.7 K/uL (0.0-1.0); MONOCYTES % (AUTO) 7.1 % (1.7-9.3); NEUTROPHILS # (AUTO) 5.3 K/uL (1.8-7.7); NEUTROPHILS % (AUTO) 54.1 % (40.0-70.0); PLATELET COUNT (AUTO) 253 K/uL (130-430); RED CELL DISTRIBUTION WIDTH 13.1 % (9.0-15.0); WHITE BLOOD COUNT (AUTO) 9.8 K/uL (4.8-10.8)
[2022-10-25 23:57] LABS: ALANINE AMINOTRANSFERASE 55 U/L (12-78); ALBUMIN 4.4 g/dL (3.4-4.8); ANION GAP 8 (5-15); ASPARTATE AMINOTRANSFERASE 18 U/L (10-37); CALCIUM 9.4 mg/dL (8.4-11.0); CARBON DIOXIDE 26 mmol/L (23-29); CHLORIDE 101 mmol/L (98-107); CREATININE 0.95 mg/dL (0.55-1.30); GFR AFRICAN AMERICAN 125 mL/min (>90); GFR NON AFRICAN-AMERICAN 104 mL/min (>90); GLUCOSE 107 mg/dL (74-106); POTASSIUM 4.1 mmol/L (3.5-5.1); SODIUM SERUM 135 mmol/L (136-145); TOTAL BILIRUBIN 0.6 mg/dL (0.0-1.0); TOTAL PROTEIN, SERUM 7.7 g/dL (6.4-8.3); UREA NITROGEN, BLOOD 16 mg/dL (8-21)
[2022-10-26] MEDS ORDERED: ONDANSETRON 4 MG ODT TAB PO ONE (00:15)
[2022-10-26] MEDS ORDERED: LISI20TA30 PO (00:25)
[2022-10-26 00:37] VITALS: BP_SYST 139; PULSE 71; RESP 19; TEMP 96.8; O2SAT 97
== END 2022-10-26 00:37 | disposition home or self-care (01) ==
LOC: SED 15:21
DX: R07.9 Chest pain, unspecified (principal); I10 Essential (primary) hypertension; E78.5 Hyperlipidemia, unspecified; Z79.899 Other long term (current) drug therapy
CPT/HCPCS: 99285; 71046; 80053; 83880; 85025; 85379; 84484; 36415; 93005; Q0162